=== PATIENT | male | born 1960 | race Caucasian/White ===

== ENCOUNTER 2019-03-26 16:00 | Emergency (ER) | payer BC ==
[2019-03-26 16:37] LABS: CHLORIDE,CL 104 mEq/L (98-106); SODIUM,NA 141 mEq/L (136-145)
[2019-03-26] MEDS ORDERED: Sodium Chloride 0.9% 1,000 ML IV SCH (17:00)
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
[2019-03-26 17:13] VITALS: BP 140/100; PULSE 69
== END 2019-03-26 17:21 ==
LOC: CC.ED 16:00
DX: R47.01 Aphasia (principal); I48.91 Unspecified atrial fibrillation; Z79.82 Long term (current) use of aspirin; Z79.899 Other long term (current) drug therapy; Z88.1 Allergy status to other antibiotic agents
CPT/HCPCS: 36415; 70450; 80048; 82550; 83615; 84484; 85025; 85610; 85730; 93005; 99285; J7030

== ENCOUNTER 2021-02-10 12:47 | Emergency (ER) | payer OTHER, BC ==
[2021-02-10] MEDS ORDERED: Silver Sulfadiazine 1% Crm 50 GM Tube TOP ONE (13:12)
[2021-02-10] MEDS ORDERED: Diphtheria,Pertussis(Acell),Tetanus Vaccine 0.5 ML Syringe IM ONE (13:22)
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
[2021-02-10 14:19] VITALS: BP 138/88; PULSE 70
== END 2021-02-10 13:50 | disposition home or self-care (01) ==
LOC: CC.ED 12:47
DX: T59.891A Toxic effect of other specified gases, fumes and vapors, accidental (unintentional), initial encounter (principal); T22.612A Corrosion of second degree of left forearm, initial encounter; Z23 Encounter for immunization; E78.00 Pure hypercholesterolemia, unspecified; Z88.1 Allergy status to other antibiotic agents; W36.2XXA Explosion and rupture of air tank, initial encounter; Y99.0 Civilian activity done for income or pay
CPT/HCPCS: 16020; 90471; 90715; 99283-25; A9270-GY

== ENCOUNTER 2022-03-15 08:36 | Emergency (ER) | payer BC ==
[2022-03-15] MEDS: Metoprolol Tartrate 5 MG/5 ML SDV IVPUSH ONE ×3 (09:02→09:26)
[2022-03-15] MEDS: Metoprolol Succinate 25 MG Tab.ER PO ONE (09:32)
[2022-03-15] MEDS: Diltiazem 25 MG/5 ML SDV IVPUSH ONE (09:52)
[2022-03-15 10:34] VITALS: BP 108/85; PULSE 85
[2022-03-15 11:32] LABS: CHLORIDE,CL 106 mEq/L (98-106); ESTIMATED GFR 77 mL/min (>=60); SODIUM,NA 141 mEq/L (136-145)
== END 2022-03-15 10:55 | disposition home or self-care (01) ==
LOC: CC.ED 08:36
DX: I48.91 Unspecified atrial fibrillation (principal); E78.00 Pure hypercholesterolemia, unspecified; Z88.1 Allergy status to other antibiotic agents; Z79.82 Long term (current) use of aspirin; Z79.01 Long term (current) use of anticoagulants
CPT/HCPCS: 36415; 71046; 80053; 84484; 85025; 86140; 93005; 96374; 96375; 99285; 99285-25; A9270-GY; J3490

== ENCOUNTER → 2025-07-18 | Day surgery (SDC) | payer BC ==
[~2025-07-18] MED LIST: Ketamine 200 MG/20 ML MDV ONE; Midazolam 1 MG/ML 2 ML SDV ONE; Propofol 200 MG/20 ML SDV ONE; ePHEDrine 50 MG/ML SDV ONE; fentaNYL 50 MCG/ML SDV ONE
[2025-07-18] MEDS: Lactated Ringers 1,000 ML IV SCH (10:49)
[2025-07-18 15:51] VITALS: BP 122/74; PULSE 82
== END | disposition home or self-care (01) ==
LOC: CC.SDS 10:40
PROVIDERS: ATTEND Surgery
DX: Z12.11 Encounter for screening for malignant neoplasm of colon (principal); D12.2 Benign neoplasm of ascending colon; D12.3 Benign neoplasm of transverse colon; D12.8 Benign neoplasm of rectum; F41.9 Anxiety disorder, unspecified; I48.91 Unspecified atrial fibrillation; E66.9 Obesity, unspecified; Z68.33 Body mass index [BMI] 33.0-33.9, adult; Z88.8 Allergy status to other drugs, medicaments and biological substances; Z87.891 Personal history of nicotine dependence; Z79.899 Other long term (current) drug therapy
CPT/HCPCS: 00811; J2250; J2704; J3010; J3490; J7120